=== PATIENT | male | born 1955 | race Asian ===

== ENCOUNTER 2019-11-10 12:23 | Observation (INO) | payer OTHER ==
[~2019-11-10] VITALS: Ht 177.8 cm; Wt 81.0 kg
[~2019-11-10 12:23] MED LIST: CEFAZOLIN 1,000 MG ONE; GLYCOPYRROLATE 0.2MG/1ML, 5ML ONE; NEOSTIGMINE 1 MG/ML, 10ML ONE; PROPOFOL 10 MG/ML, 20ML ONE; ROCURONIUM 10MG/ML,5ML ONE
[2019-11-10] MEDS ORDERED: SODIUM CHLORIDE 0.9% 1,000 ML IV ONE (12:49)
[2019-11-10] MEDS ORDERED: KETOROLAC 30 MG/1 ML ONE (12:57)
[2019-11-10] MEDS ORDERED: SODIUM CHLORIDE FLUSH 10ML SYR IVF ONE (13:00)
[2019-11-10] MEDS ORDERED: KETOROLAC 30 MG/1 ML IVPush ONE (13:00)
--- NOTE | 2019-11-10 13:02 | NUR ---
PIV PLACED, LABS DRAWN AND COLLECTED BY LAB. PT PROVIDED URINE SAMPLE. UA COLLECTED AND SENT TO LAB. MEDS ADMIN PER SEP. AT BEDSIDE.
[2019-11-10 13:09] LABS: BASOPHILS # (AUTO) 0.03 x10^3/uL (0-0.1); BASOPHILS % (AUTO) 0 % (0-1); EOSINOPHILS # (AUTO) 0.02 x10^3/uL (0-0.4); EOSINOPHILS % (AUTO) 0 % (1-7); LYMPHOCYTES # (AUTO) 1.48 x10^3/uL (1-3.4); LYMPHOCYTES % (AUTO) 20 % (22-44); MD NO; MEAN CORPUSCULAR HEMOGLOBIN 31.6 pg (27.5-34.5); MEAN CORPUSCULAR HGB CONC 34.2 g/dL (33.2-36.2); MEAN CORPUSCULAR VOLUME 92.5 fL (81-97); MEAN PLATELET VOLUME 7.3 fL (7.4-10.4); MONOCYTES # (AUTO) 0.34 x10^3/uL (0.2-0.8); MONOCYTES % (AUTO) 5 % (2-9); NEUTROPHILS # (AUTO) 5.67 x10^3/uL (1.8-6.8); NEUTROPHILS % (AUTO) 75 % (42-75); PLATELET COUNT 164 x10^3/uL (130-400); RED CELL DISTRIBUTION WIDTH 13.1 % (9.4-14.8)
[2019-11-10 13:14] LABS: MICROSCOPIC NOT IND
[2019-11-10 13:16] LABS: CULTURE INDICATED? NO
[2019-11-10 13:34] LABS: ANION GAP 7 mmol/L (5-15); CALCIUM 8.9 mg/dL (8.5-10.1); CHLORIDE 106 mmol/L (98-107); CREATININE 0.98 mg/dL (0.7-1.3)
--- NOTE | 2019-11-10 13:53 | NUR ---
PT RESTING COMFORTABLY ON GURNEY. ONIELN. AWAITING CT.
--- NOTE | 2019-11-10 14:05 | NUR ---
PT AT CT
--- NOTE | 2019-11-10 14:39 | NUR ---
PT BACK FROM CT.
[2019-11-10] MEDS ORDERED: HYDROmorphone 1 MG/ML, 1ML INJ ONE (14:44)
--- NOTE | 2019-11-10 14:48 | NUR ---
PT C/O 04/26 PAIN. PAIN MEDS ADMIN PER SEP. PT NOW RESTING COMFORTABLY ON GURNEY.
[2019-11-10] MEDS ORDERED: HYDROmorphone 2 MG/ML, 1ML IVPush ONE (15:00)
--- NOTE | 2019-11-10 15:07 | NUR ---
ALL RESULTS ARE BACK AT THIS TIME. TO CONSULT NEPHRO.
[2019-11-10] MEDS ORDERED: MORPHINE SULFATE 4 MG/ML, 1ML IVPush ONE (15:30)
[2019-11-10] MEDS ORDERED: MORPHINE SULFATE 4 MG/ML, 1ML ONE (15:34)
--- NOTE | 2019-11-10 15:46 | NUR ---
PT C/O INTERMITTENT 04/26. PAIN MEDS ADMIN PER SEP. HOSPITALIST AT BEDSIDE.
[2019-11-10] MEDS ORDERED: BACLOFEN 10 MG TABLET PO PRN (16:00)
[2019-11-10] MEDS ORDERED: ACETAMINOPHEN 325 MG TABLET PO PRN (16:00)
[2019-11-10] MEDS ORDERED: HYDROmorphone 2 MG/ML, 1ML IVPush PRN ×2 (16:00→17:30)
[2019-11-10] MEDS ORDERED: hydrALAzine 20 MG/ML, 1ML IVPush PRN (16:00)
[2019-11-10] MEDS ORDERED: ONDANSETRON 2MG/ML, 2ML IVPush PRN (16:00)
[2019-11-10] MEDS ORDERED: ONDANSETRON ODT 4 MG PO PRN (16:00)
[2019-11-10] MEDS ORDERED: OXYcodone IR 5MG TABLET PO PRN (16:00)
--- NOTE | 2019-11-10 16:56 | NUR ---
REPORT GIVEN TO OR NURSE. OR TECH HERE TO TAKE PT TO SURGERY.
[2019-11-10] MEDS ORDERED: FENTANYL PF 250 MCG/5ML ONE (17:13)
[2019-11-10] MEDS ORDERED: FENTANYL PF 100 MCG/2ML IV PRN (17:30)
[2019-11-10] MEDS ORDERED: OXYcodone 5 MG/5 ML ORAL.SOL UDC PO PRN (17:30)
[2019-11-10] MEDS ORDERED: MEPERIDINE/PF 25MG/ML,1ML IVPush PRN (17:30)
[2019-11-10] MEDS ORDERED: MORPHINE SULFATE 4 MG/ML, 1ML IVPush PRN (17:30)
[2019-11-10] MEDS ORDERED: ONDANSETRON 2MG/ML, 2ML IV PRN (17:30)
[2019-11-10] MEDS ORDERED: hydrALAzine 20 MG/ML, 1ML IV PRN (17:30)
[2019-11-10] MEDS ORDERED: LABETALOL 5MG/ML, 20ML IV PRN (17:30)
[2019-11-10] MEDS ORDERED: hydrALAzine 20 MG/ML, 1ML ONE (19:12)
[2019-11-10] MEDS ORDERED: MEPERIDINE/PF 25MG/ML,1ML ONE (19:37)
[2019-11-10] MEDS ORDERED: ONDANSETRON 2MG/ML, 2ML ONE (19:42)
[2019-11-10] MEDS ORDERED: KETOROLAC 30 MG/1 ML IV PRN (20:00)
[2019-11-10 21:10] VITALS: BP 137/77
[2019-11-11 00:45] VITALS: BP 132/76
[2019-11-11] MEDS: D5%-0.45NACL+KCL 20MEQ 1,000 ML IV SCH ×2 (01:08→11:30)
[2019-11-11 03:24] VITALS: BP 126/76
[2019-11-11 05:27] LABS: BASOPHILS # (AUTO) 0.03 x10^3/uL (0-0.1); BASOPHILS % (AUTO) 1 % (0-1); EOSINOPHILS % (AUTO) 0 % (1-7); LYMPHOCYTES # (AUTO) 1.15 x10^3/uL (1-3.4); LYMPHOCYTES % (AUTO) 18 % (22-44); MD NO; MEAN CORPUSCULAR HEMOGLOBIN 31.3 pg (27.5-34.5); MEAN CORPUSCULAR HGB CONC 33.8 g/dL (33.2-36.2); MEAN CORPUSCULAR VOLUME 92.6 fL (81-97); MEAN PLATELET VOLUME 7.4 fL (7.4-10.4); MONOCYTES # (AUTO) 0.49 x10^3/uL (0.2-0.8); MONOCYTES % (AUTO) 8 % (2-9); NEUTROPHILS # (AUTO) 4.85 x10^3/uL (1.8-6.8); NEUTROPHILS % (AUTO) 75 % (42-75); PLATELET COUNT 162 x10^3/uL (130-400); RED BLOOD COUNT 4.37 x10^6/uL (4.38-5.82); RED CELL DISTRIBUTION WIDTH 13.1 % (9.4-14.8)
[2019-11-11 05:35] LABS: ANION GAP 6 mmol/L (5-15); CHLORIDE 106 mmol/L (98-107); CREATININE 0.83 mg/dL (0.7-1.3)
[2019-11-11 07:51] VITALS: BP 146/85
[2019-11-11] MEDS ORDERED: HYDR-3240 PO (11:41)
== END 2019-11-11 11:57 | disposition home or self-care (01) ==
LOC: ED 13:33 → INTOOBSV 15:28 → EDIP 15:28 → 4NE 21:07
PROVIDERS: ADMIT Hospitalist; ATTEND Hospitalist
DX: N11.1 Chronic obstructive pyelonephritis (principal); I10 Essential (primary) hypertension; J96.01 Acute respiratory failure with hypoxia; J98.11 Atelectasis; E74.39 Other disorders of intestinal carbohydrate absorption; Z87.442 Personal history of urinary calculi
CPT/HCPCS: 36415; 52356; 74018; 74176; 76000; 80048; 81003; 82040; 85025; 96374; 96375; 99284; C1758; C1769; C2617; G0378; J0360; J0690; J1170; J1885; J2175; J2270; J2405; J2704; J2710; J3010; J3480; J7030